=== PATIENT | male | born 1995 | race Two or more races ===

== ENCOUNTER 2020-11-11 21:12 | Emergency (ER) | payer BC, OTHER ==
[~2020-11-11] VITALS: Ht 177.8 cm; Wt 98.4 kg
[2020-11-12 00:26] VITALS: BP 128/79
[2020-11-12] MEDS ORDERED: HYDROcodone-ACET 10/325MG TAB PO ONE (02:00)
[2020-11-12] MEDS ORDERED: ONDANSETRON ODT 4 MG TAB PO ONE (02:00)
== END 2020-11-12 02:01 | disposition home or self-care (01) ==
LOC: ER 21:15
DX: M54.16 Radiculopathy, lumbar region (principal)
CPT/HCPCS: 99283; Q0162